=== PATIENT | female | born 1960 | race Caucasian/White ===

== ENCOUNTER → 2016-11-27 | Outpatient (CLI) | payer OTHER ==
[~2016-11-27] MED LIST: DULO20CA17 PO; HYD25 PO; LOSA25TA5 PO; NAPR-688 PO; PANT40TA4 PO; POTA10TA18 PO
--- NOTE | 2016-11-27 14:15 | RADRPT ---
PROCEDURE: XR Right hip and pelvis. CLINICAL INDICATION: Right hip pain. Pelvic pain. TECHNIQUE: Two views. Frontal pelvis and lateral right hip. COMPARISON: 04/11/2014. FINDINGS: There is no fracture or dislocation. The soft tissues are normal. There are degenerative changes of the right hip with joint space narrowing and osteophytes. 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 There is no lytic or blastic lesion. The upper pelvis is not completely included on the image. IMPRESSION: 1. Moderate degenerative changes of the right hip. 2. Satisfactory postoperative appearance of the left hip. RPTAT: QQ .Trace Maldonado MD, MD Date Time Electronically viewed and signed by .Tarce Maldonado MD, on 11/27/2016 14:15 .R/
--- NOTE | 2016-11-27 14:17 | RADRPT ---
PROCEDURE: Right knee radiographs. CLINICAL INDICATION: Right knee pain. TECHNIQUE: Three views. Weight bearing. Frontal, lateral, and patellar view. COMPARISON: 11/13/2015. FINDINGS: There is no fracture or dislocation. The soft tissues are normal. There are degenerative changes with osteophytes arising from all 3 joint compartment margins. There is medial and lateral joint compartment narrowing, worse than seen previously. There is no lytic or blastic lesion. There is no radiopaque foreign body. IMPRESSION: 1. Moderate degenerative changes of the right knee, worse than seen on 11/13/2015. RPTAT: QQ .Trace Maldonado MD, MD Date Time Electronically viewed and signed by .Trace Maldonado MD, MD on 11/27/2016 14:16 .R/
== END | disposition home or self-care (01) ==
LOC: HKI 13:44
DX: Z47.1 Aftercare following joint replacement surgery (principal); Z96.641 Presence of right artificial hip joint; M16.11 Unilateral primary osteoarthritis, right hip; M17.11 Unilateral primary osteoarthritis, right knee
CPT/HCPCS: 20610; 73502; G0463

== ENCOUNTER → 2017-07-16 | Outpatient (CLI) | END | disposition home or self-care (01) ==